=== PATIENT | male | born 1980 | race American Indian/Alaskan Native ===

== ENCOUNTER 2016-12-14 15:42 | Inpatient (IN) | payer MEDICAID ==
[2016-12-14 16:04] VITALS: BMI 37.9
[2016-12-14 16:05] VITALS: O2SAT 95
--- NOTE | 2016-12-14 16:53 | C.PDOC ---
History Of Present Illness 36 y/o male with a Hx of schizophrenia, hypertension, diabetes, and Hypercholesterolemia, presents to the ED with a c/o depression and suicidal ideation for severral months now. Pt notes having auditory command hallucination that is telling him to "commit suicide by taking all his medications" and notes seeing his sister. Pt reports not knowing how much medications to take and notes having a new psychiatrist and was referred to [facility] for psych evaluation yesterday. Pt notes symptoms are persisting but denies fever, chills, nausea, vomiting, diarrhea, or any other complaints. Pt is found to have high blood pressure and is unsure whether he has taken his blood pressure medication. Time Seen by Provider: 12/14/16 16:22 Chief Complaint (Nursing): Psychiatric Evaluation History Per: Patient History/Exam Limitations: no limitations Onset/Duration Of Symptoms: Days Current Symptoms Are (Timing): Still Present Suicide/Self Injury Attempted (Context): Other (Medication overdose) Modifying Factor(s): None Severity: Mild Associated Symptoms: Suicidal Thoughts, Suicidal Plan Past Medical History Reviewed: Historical Data, Nursing Documentation, Vital Signs Vital Signs: Last Vital Signs Temp 98.4 F 12/14/16 16:04 Pulse 92 H 12/14/16 16:04 Resp 18 12/14/16 16:04 BP 148/103 H 12/14/16 16:04 Pulse Ox 95 12/14/16 17:42 - Medical History PMH: Bipolar Disorder, HTN, Hypercholesterolemia Family History: States: Unknown Family Hx - Social History Hx Alcohol Use: No Hx Substance Use: No - Immunization History Hx Tetanus Toxoid Vaccination: No Hx Influenza Vaccination: No Hx Pneumococcal Vaccination: No Review Of Systems Except As Marked, All Systems Reviewed And Found Negative. Constitutional: Negative for: Fever, Chills Gastrointestinal: Negative for: Nausea, Vomiting, Diarrhea Psych: Positive for: Suicidal ideation Physical Exam - Physical Exam Appears: Non-toxic, No Acute Distress Skin: Warm, Dry Head: Atraumatic, Normacephalic Eye(s): bilateral: Normal Inspection Chest: Symmetrical Cardiovascular: Rhythm Regular, No Murmur Respiratory: Normal Breath Sounds, No Rales, No Rhonchi, No Wheezing Gastrointestinal/Abdominal: Soft, No Tenderness Neurological/Psych: Oriented x3, Normal Speech, Normal Cognition ED Course And Treatment - Laboratory Results Result Diagrams: 12/14/16 17:07 12/14/16 17:07 Lab Interpretation: No Acute Changes O2 Sat by Pulse Oximetry: 95 (Room air) Pulse Ox Interpretation: Normal Progress Note: Patient was evaluated by psych and will be admitted for schizoaffective disorder. Medical Decision Making Medical Decision Making: Plans: -EKG -Blood labs -IV fluids -Catapres -Reassess and disposition Pt is admitted to crisis Disposition - Disposition Disposition: HOSPITALIZED Disposition Time: 20:17 Condition: STABLE - POA Present On Arrival: None - Clinical Impression Clinical Impression: Schizoaffective disorder - Scribe Statement The provider has reviewed the documentation as recorded by the Scribe Prosper [email or web address] All medical record entries made by the Scribe were at my direction and personally dictated by me. I have reviewed the chart and agree that the record accurately reflects my personal performance of the history, physical exam, medical decision making, and the department course for this patient. I have also personally directed, reviewed, and agree with the discharge instructions and disposition.
[2016-12-14 17:17] LABS: BASO # 0.1 K/uL (0.0-0.2); EOS # 0.4 K/uL (0.0-0.7); EOS % 4.4 % (0.0-4.0); HEMATOCRIT 42.9 % (35.0-51.0); LYMPH # 2.2 K/uL (1.0-4.3); LYMPH % 23.5 % (20.0-40.0); MEAN CELL VOLUME 85.3 fL (80.0-94.0); MEAN CORPUSCULAR HEMOGLOBIN 27.9 pg (27.0-31.0); MEAN CORPUSCULAR HGB CONC 32.7 g/dL (33.0-37.0); MEAN PLATELET VOLUME 9.8 fL (7.2-11.7); MONO # 0.6 K/uL (0.0-0.8); MONO % 6.9 % (0.0-10.0); RED CELL DISTRIBUTION WIDTH 14.6 % (11.5-14.5); WHITE BLOOD COUNT 9.2 K/uL (4.8-10.8)
[2016-12-14 17:22] LABS: RBC URINE < 1 /hpf (0-3); URINE BILIRUBIN NEGATIVE (NEGATIVE); URINE BLOOD NEGATIVE (NEGATIVE); URINE COLOR Yellow (YELLOW); URINE GLUCOSE (UA) 2+ mg/dL (Normal); URINE KETONE NEGATIVE (NEGATIVE); URINE LEUKOCYTE ESTERASE NEG Leu/uL (Negative); URINE PROTEIN 2+ mg/dL (NEGATIVE); URINE UROBILINOGEN NORMAL mg/dL (0.2-1.0); WBC URINE 1 /hpf (0-5)
[2016-12-14 17:25] LABS: CHLORIDE 96 mmol/L (98-107); SODIUM 139 mmol/L (132-148)
[2016-12-14 17:27] LABS: BILIRUBIN,TOTAL 0.5 mg/dL (0.2-1.3); CARBON DIOXIDE 24 mmol/L (22-30); GFR AFRICAN-AMERICAN > 60
[2016-12-14 17:28] LABS: ALB/GLOB RATIO 1.3 (1.0-2.1); ALKALINE PHOSPHATASE 58 U/L (38-126); ALT/SGPT 50 U/L (21-72); AST/SGOT 60 U/L (17-59); BLOOD UREA NITROGEN 10 mg/dL (9-20); CALCIUM 9.2 mg/dl (8.6-10.4); GLUCOSE,RANDOM 201 mg/dL (75-110)
[2016-12-14 17:29] LABS: ALCOHOL SERUM < 10 mg/dl (0-10)
[2016-12-15] MEDS: buPROPion 150 mg/24 Hours XL Tab PO SCH (10:01)
[2016-12-15] MEDS ORDERED: Pneumococcal 23-Valent Vaccine IM ONE (11:15)
--- NOTE | 2016-12-15 13:36 | PCM.PSYCH ---
Initial Psychiatric Evaluation - Initial Psychiatric Evaluation Type of Admission: Voluntary Legal Status: Capacity Chief Complaint (in patient's own words): Suicidal Ideation, Auditory and Visual Hallucinations History of Present Illness and Precipitating Events: Pt. is a 36 y/o AA M w/ PMHx of schizoaffective disorder. Pt. is unemployed, living in an apartment with his two children, here w/ chief complaint of suicidal ideation secondary to auditory and visual hallucinations. Pt. reports that auditory hallucinations began at age 14, and that visual hallucinations began 2 years ago. Pt. states that the auditory hallucinations are composed of numerous male and female voices that call the Pt. stupid and worthless, and that instruct the Pt. to kill [himself]. Pt. states that the voices never instruct him to hurt anyone else. Pt. reports two previous suicide attempts. The first was at the age of 14: the Pt. was having an argument with his sisters, and he was simultaneously preoccupied with the voices telling him to kill himself. Pt. states that he attempted to jump from the third floor of his home, but was grabbed and stopped by his brother. Pt. subsequently stayed in the hospital for 2 weeks - Pt. does not recall what pharmaceutical tx he received, but he remembers taking part in group therapy and individual therapy. Pt. reports that he still suffered from auditory hallucinations after his hospital stay. Pt. does not remember being on medication after he was discharged, and he reports lying to his mother about his continued auditory hallucinations. Pt. admits to a second suicide attempt 2 weeks ago, in which he planned to overdose on his psychotropic medications, but he went to his support group and they [place] [facility] [place]. Pt was discharged two days ago [place] [facility] Pt. also admits to visual hallucinations that began 2 years ago. His visual hallucinations include shadows and people in black suits, but are predominated by his sister Joselin, who from HIV/AIDS in 1995. Pt. reports that his sister will tell him that she is happy where she is, that [he] should join her, and that [he] should kill [himself]. Pt. admits to feeling as if someone is following him, and he admits to both auditory and visual hallucinations causing him to continuously inspect his home' s closets and cabinets in order to investigate hallucinations. Pt. reports being compliant with his medications and being engaged in outpatient tx at the [place] clinic [place] [facility]. Pt. reports being treated w/ Haldol 10 mg 2xday, Buproprion XL 150 mg 1xday, and Zoloft 200 mg 1xday. On review of systems Pt. admits to feelings of worthlessness, anhedonia, fatigue , difficulty focussing, and distractibility. Pt. denies feelings of euphoria, grandiosity, or talkativeness now, however, he states that in the last month he had felt that way. Pt. denies drug or alcohol abuse. Pt. is disorganized and internally preoccupied, with blunted affect. Current Medications: Active Medications Generic Name Dose Route Start Last Admin Trade Name Freq PRN Reason Stop Dose Admin Benztropine Mesylate 1 mg 12/15/16 10:15 12/15/16 10:07 Cogentin PO 1 mg BID LILLIE Administration Bupropion HCl 150 mg 12/15/16 10:00 12/15/16 10:01 Wellbutrin Xl PO 150 mg DAILY LILLIE Administration Haloperidol 10 mg 12/15/16 10:00 12/15/16 10:00 Haldol PO 10 mg BID LILLIE Administration Haloperidol 5 mg 12/14/16 21:46 12/14/16 21:58 Haldol PO 5 mg Q6 PRN Administration Agitation Hydroxyzine HCl 50 mg 12/14/16 21:45 12/14/16 21:58 Atarax PO 50 mg Q6 PRN Administration Anxiety Lorazepam 1 mg 12/14/16 21:45 Ativan PO Q6 PRN Agitation Losartan Potassium 25 mg 12/15/16 10:00 Cozaar PO DAILY LILLIE Metformin HCl 1,000 mg 12/15/16 10:00 12/15/16 10:01 Glucophage PO 1,000 mg BID LILLIE Administration Rosuvastatin Calcium 5 mg 12/14/16 22:00 12/14/16 22:01 Crestor PO 5 mg HS LILILE Administration Sertraline HCl 200 mg 12/15/16 10:00 12/15/16 10:00 Zoloft PO 200 mg DAILY LILLIE Administration Past Psychiatric History - Past Psychiatric History Previous Treatment History: Inpatient Pertinent Medical Hx (Current Medical&Sleep Prob, Allergies): Allergies Allergy/AdvReac Type Severity Reaction Status Date / Time shellfish derived Allergy Verified 12/14/16 16:42 Atorvastatin [Lipitor] 10 mg PO DAILY 12/14/16 Haloperidol [Haldol] 10 mg PO BID 12/14/16 Losartan [Cozaar] 25 mg PO DAILY 12/14/16 MetFORMIN [glucOPHAGE] 1,000 mg PO BID 12/14/16 Sertraline [Zoloft] 200 mg PO DAILY 12/14/16 buPROPion XL [Wellbutrin] 150 mg PO DAILY 12/14/16 Review of Systems - Review of Systems All systems: reviewed and no additional remarkable complaints except - Psychiatric Psychiatric: Abnormal Sleep Pattern, Anhedonia, Anxiety, Auditory Hallucinations , Depression, Difficulty Concentrating, Hallucinations, Irritability, Paranoia, Suicidal Ideation, Visual Hallucinations Mental Status Examination - Personal Presentation Personal Presentation: Looks stated age - Affect Affect: Constricted, Depressed - Motor Activity Motor Activity: Psychomotor Retardation - Reliability in Providing Information Reliability in Providing Information: Poor, due to alteration in thoughts, Poor , due to altered mood - Speech Speech: Disorganized - Mood Mood: Depressed, Anxious - Formal Thought Process Formal Thought Process: Hallucinations, Delusions, Paranoia, Loosening of associations - Hallucinations/Delusions Hallucinations: Visual, Auditory Delusions: Persecution - Obsessions/Compulsions Obsessions: No Compulsions: No - Cognitive Functions Orientation: Person, Place, Situation, Time Sensorium: Alert Attention/Concentration: Attentive Abstract Thinking: [place] Estimate of Intelligence: Below average Judgement: Imparied, as evidence by: Poor judgement, Imparied, as evidence by: Lack of insight into illness - Risk Risk: Suicidal, Diminished functioning - Strength & Assets Inventory Strength & Assets Inventory: Family support DSM 5 DX - DSM 5 DSM 5 Diagnosis: Schizoaffective disorder depressed type - Recommended/Plan of Treatment Treatment Recommendations and Plan of Treatment: Schizoaffective disorder depressed type CBT Psychoeducation Supportive therapy and group therapy Start Haldol 10 mg by mouth twice a day Start Zoloft 200 mg daily Start Wellbutrin 150 mg daily Start Cogentin 1 mg by mouth twice a day DM Continue prescribed medications (Metformin) Monitor signs and symptoms HTN Continue prescribed medications (Losartan) Monitor signs and symptoms Hyperlipidemia Continue prescribed medications (Rosuvastatin) Monitor signs and symptoms
--- NOTE | 2016-12-15 21:28 | CARD ---
APPROVED REPORT EKG Measurement Heart [id number] <Conclusion> Normal sinus rhythm T wave abnormality, consider inferior ischemia Abnormal ECG
[2016-12-16] MEDS: buPROPion 150 mg/24 Hours XL Tab PO SCH (09:42)
--- NOTE | 2016-12-16 12:39 | PCM.PYCHPN ---
Psychiatric Progress Note - Psychiatric Progress Note Patient seen today, length of contact: 16 min Patient Chief Complaint: Suicidal Ideation, Auditory and Visual Hallucinations Problems Identified/Issues Discussed: Patient seen and evaluated, chart reviewed and discussed with the nurse. Supportive therapy and psychoeducation were given. Patient remained disorganized and internally preoccupied. Patient was found to be pacing back and forth in the hallways. He appeared anxious, paranoid and delusional. He started taking medication and denies any side effects. Medication Change: Yes (increase haldol ) Medical Record Reviewed: Yes Mental Status Examination - Cognitive Function Orientation: Person, Place, Situation, Time Memory: Intact Attention: WNL Concentration: Poor Association: Loose Fund of Knowledge: WNL - Mood Mood: Depressed, Anxious - Affect Affect: Constricted, Depressed - Speech Speech: Soft - Formal Thought Process Formal Thought Process: Hallucinations, Delusions, Paranoia, Loosening of associations - Suicidal Ideation Suicidal Ideation: No - Homicidal Ideation Homicidal Ideation: No Goal/Treatment Plan - Goal/Treatment Plan Need for Continued Stay: Discharge may exacerbated symptoms, Severe functional impairment Progress Toward Problem(s) and Goals/Treatment Plan: Schizoaffective disorder depressed type CBT Psychoeducation Supportive therapy and group therapy Haldol 10 mg by mouth twice a day Zoloft 200 mg daily Wellbutrin 150 mg daily Cogentin 1 mg by mouth twice a day DM Continue prescribed medications (Metformin) Monitor signs and symptoms HTN Continue prescribed medications (Losartan) Monitor signs and symptoms Hyperlipidemia Continue prescribed medications (Rosuvastatin) Monitor signs and symptoms - Smoking Cessation Smoking Cessation Initiated: No
[2016-12-17] MEDS: buPROPion 150 mg/24 Hours XL Tab PO SCH (10:08)
--- NOTE | 2016-12-17 15:20 | PCM.PYCHPN ---
Psychiatric Progress Note - Psychiatric Progress Note Patient seen today, length of contact: 15 minutes Patient Chief Complaint: I'm feeling much better. I heard some voices briefly last night Problems Identified/Issues Discussed: Patient seen. Chart reviewed. Case discussed with the staff. Issues related to illness and treatment were discussed with the patient. Patient reported feeling better with the treatment. He voices are very less and very less frequently. Reported last time he heard some voices very briefly and also intensity is very less. Staff also confirmed the above. At the time of evaluation, patient was awake alert oriented 3, had no delusions, no auditory or visual hallucinations , no suicidal ideations or homicidal ideations. Medical Problems: Hypertension Diabetes mellitus Hyperlipidemia Diagnostic Results: Reviewed DSM 5 Symptoms Update: Improving with treatment Medication Change: No Medical Record Reviewed: Yes Mental Status Examination - Cognitive Function Orientation: Person, Place, Situation, Time Memory: Intact Attention: WNL Concentration: Poor Association: WNL Fund of Knowledge: WNL Decription of patient's judgement and insights: Fair - Mood Mood: Neutral - Affect Affect: Other (Appropriate) - Speech Speech: Soft - Formal Thought Process Formal Thought Process: No Impairment (At the time of evaluation) Psychotic Thoughts and Behaviors: None - Suicidal Ideation Suicidal Ideation: No - Homicidal Ideation Homicidal Ideation: No Goal/Treatment Plan - Goal/Treatment Plan Need for Continued Stay: Remain at risks for inpatient hospitalization, Discharge may exacerbated symptoms, Severe functional impairment Progress Toward Problem(s) and Goals/Treatment Plan: Patient education Supportive therapy Continue treatment as before Patient will go to [facility], for follow-up care after discharge from the hospital. Estimated Date of D/C: 12/21/16 - Smoking Cessation Smoking Cessation Initiated: No
[2016-12-18] MEDS: buPROPion 150 mg/24 Hours XL Tab PO SCH (09:16)
--- NOTE | 2016-12-18 12:32 | PCM.PYCHPN ---
Psychiatric Progress Note - Psychiatric Progress Note Patient seen today, length of contact: 15 minutes Patient Chief Complaint: I'm feeling much better. Problems Identified/Issues Discussed: Patient seen. Chart reviewed. Case discussed with the staff. Issues related to illness and treatment were discussed with the patient. Patient reported feeling better with the treatment. He reported voices are very less and hears them less frequently. Also intensity is very less. Staff also confirmed the above. At the time of evaluation, patient was awake alert oriented 3, had no delusions, no auditory or visual hallucinations, no suicidal ideations or homicidal ideations. Medical Problems: Hypertension Diabetes mellitus Hyperlipidemia Diagnostic Results: Reviewed DSM 5 Symptoms Update: Improving with treatment Medication Change: No Medical Record Reviewed: Yes Mental Status Examination - Cognitive Function Orientation: Person, Place, Situation, Time Memory: Intact Attention: WNL Concentration: WNL Association: WNL Fund of Knowledge: WN Decription of patient's judgement and insights: Fair - Mood Mood: Neutral - Affect Affect: Other (Appropriate) - Speech Speech: Soft - Formal Thought Process Formal Thought Process: No Impairment (At the time of evaluation) Psychotic Thoughts and Behaviors: None - Suicidal Ideation Suicidal Ideation: No - Homicidal Ideation Homicidal Ideation: No Goal/Treatment Plan - Goal/Treatment Plan Need for Continued Stay: Remain at risks for inpatient hospitalization, Discharge may exacerbated symptoms, Severe functional impairment Progress Toward Problem(s) and Goals/Treatment Plan: Patient education Supportive therapy Continue treatment as before Patient will go to [facility], for follow-up care after discharge from the hospital. Estimated Date of D/C: 12/21/16 - Smoking Cessation Smoking Cessation Initiated: No
[2016-12-19] MEDS: buPROPion 150 mg/24 Hours XL Tab PO SCH (09:00)
--- NOTE | 2016-12-19 13:23 | PCM.PYCHPN ---
Psychiatric Progress Note - Psychiatric Progress Note Patient seen today, length of contact: 15 minutes Patient Chief Complaint: Suicidal Ideation, Auditory and Visual Hallucinations Problems Identified/Issues Discussed: Patient seen and evaluated, chart reviewed and discussed with the nurse. Patient remained disorganized and internally preoccupied. Patient was found to be pacing back and forth in the hallways. He appeared anxious, paranoid and delusional. Pt. admits to continued auditory and visual hallucinations. The auditory hallucinations are voices that denigrate him, call him worthless etc. The visual hallucinations are human figures w/ blacked-out faces. Pt. admits to difficulty sleeping. Pt. denies suicidal ideation or thoughts of self-harm. Pt. states that his current medications make him groggy. Supportive therapy and psychoeducation were given. Medication Change: No Medical Record Reviewed: Yes Mental Status Examination - Cognitive Function Orientation: Person, Place, Situation, Time Memory: Intact Attention: WNL Concentration: Poor Association: WNL Fund of Knowledge: Poor - Mood Mood: Anxious - Affect Affect: Constricted, Depressed, Other (Appropriate) - Speech Speech: Soft - Formal Thought Process Formal Thought Process: Hallucinations, Delusions - Suicidal Ideation Suicidal Ideation: No - Homicidal Ideation Homicidal Ideation: No Goal/Treatment Plan - Goal/Treatment Plan Need for Continued Stay: Remain at risks for inpatient hospitalization, Discharge may exacerbated symptoms, Severe functional impairment Progress Toward Problem(s) and Goals/Treatment Plan: Schizoaffective disorder depressed type CBT Psychoeducation Supportive therapy and group therapy Haldol 10 mg by mouth twice a day Zoloft 200 mg daily Wellbutrin 150 mg daily Cogentin 1 mg by mouth twice a day DM Continue prescribed medications (Metformin) Monitor signs and symptoms HTN Continue prescribed medications (Losartan) Monitor signs and symptoms Hyperlipidemia Continue prescribed medications (Rosuvastatin) Monitor signs and symptoms Estimated Date of D/C: 12/21/16 - Smoking Cessation Smoking Cessation Initiated: No
[2016-12-20] MEDS: buPROPion 150 mg/24 Hours XL Tab PO SCH (09:24)
--- NOTE | 2016-12-20 17:43 | PCM.PYCHPN ---
Psychiatric Progress Note - Psychiatric Progress Note Patient seen today, length of contact: 15 minutes Patient Chief Complaint: I'm feeling better Problems Identified/Issues Discussed: Patient seen and evaluated, chart reviewed and discussed with the nurse. As per staff patient is becoming more organized and has started coming out of his room. Patient reports improvement in his voices and delusions. He remained calm and cooperative, and appears coherent. He started taking hygiene and ADLs. Pt. denies suicidal ideation or thoughts of self-harm. Pt. is taking medication and denied any side effects. Supportive therapy and psychoeducation were given. Medication Change: No Medical Record Reviewed: Yes Mental Status Examination - Cognitive Function Orientation: Person, Place, Situation, Time Memory: Intact Attention: WNL Concentration: WNL Association: WNL Fund of Knowledge: WNL - Mood Mood: Anxious - Affect Affect: Constricted - Speech Speech: Soft - Formal Thought Process Formal Thought Process: Hallucinations - Suicidal Ideation Suicidal Ideation: No - Homicidal Ideation Homicidal Ideation: No Goal/Treatment Plan - Goal/Treatment Plan Need for Continued Stay: Remain at risks for inpatient hospitalization, Discharge may exacerbated symptoms, Severe functional impairment Progress Toward Problem(s) and Goals/Treatment Plan: Schizoaffective disorder depressed type CBT Psychoeducation Supportive therapy and group therapy Haldol 10 mg by mouth twice a day Zoloft 200 mg daily Wellbutrin 150 mg daily Cogentin 1 mg by mouth twice a day DM Continue prescribed medications (Metformin) Monitor signs and symptoms HTN Continue prescribed medications (Losartan) Monitor signs and symptoms Hyperlipidemia Continue prescribed medications (Rosuvastatin) Monitor signs and symptoms Estimated Date of D/C: 12/21/16 - Smoking Cessation Smoking Cessation Initiated: No
--- NOTE | 2016-12-21 10:23 | PCM.PYCHPN ---
Psychiatric Progress Note - Psychiatric Progress Note Patient seen today, length of contact: 15 minutes Patient Chief Complaint: Suicidal Ideation, Auditory and Visual Hallucinations Problems Identified/Issues Discussed: Pt. reports that the auditory hallucinations are now manifesting as a low volume white noise, which is much improved from the voices he was hearing on admission. Pt. denies visual hallucinations for the first time since admission. Pt. manifests a positive affect. Pt. reports that his medications make him feel groggy, and he admits to feeling musculoskeletal body aches. Medication Change: No Medical Record Reviewed: Yes Mental Status Examination - Cognitive Function Orientation: Person, Place, Situation, Time Memory: Intact Attention: WNL Concentration: Poor Association: WNL Fund of Knowledge: Poor - Mood Mood: Depressed - Affect Affect: Constricted, Depressed, Other (Appropriate) - Speech Speech: Soft - Formal Thought Process Formal Thought Process: Hallucinations - Suicidal Ideation Suicidal Ideation: No - Homicidal Ideation Homicidal Ideation: No Goal/Treatment Plan - Goal/Treatment Plan Need for Continued Stay: Remain at risks for inpatient hospitalization, Discharge may exacerbated symptoms, Severe functional impairment Progress Toward Problem(s) and Goals/Treatment Plan: Schizoaffective disorder depressed type CBT Psychoeducation Supportive therapy and group therapy Haldol 10 mg by mouth twice a day Zoloft 200 mg daily Wellbutrin 150 mg daily Cogentin 1 mg by mouth twice a day DM Continue prescribed medications (Metformin) Monitor signs and symptoms HTN Continue prescribed medications (Losartan) Monitor signs and symptoms Hyperlipidemia Continue prescribed medications (Rosuvastatin) Monitor signs and symptoms Estimated Date of D/C: 12/21/16
[2016-12-21] MEDS: buPROPion 150 mg/24 Hours XL Tab PO SCH (10:28)
[2016-12-21 16:13] VITALS: BP 138/92
[2016-12-22 07:59] VITALS: PULSE 96; RESP 18; TEMP 97.3
[2016-12-22] MEDS: buPROPion 150 mg/24 Hours XL Tab PO SCH (09:01)
--- NOTE | 2016-12-22 10:56 | PCM.PYCHDC ---
Mental Status Examination - Mental Status Examination Orientation: Person, Place, Situation, Time Memory: Intact Mood: Neutral Affect: Constricted Speech: Soft Attention: WNL Concentration: WNL Association: WNL Fund of Knowledge: WNL Formal Thought Process: No Impairment Description of patient's judgement and insight: good, fair Psychotic Thoughts and Behaviors: denies any AVH Suicidal Ideation: No Current Homicidal Ideation?: No Discharge Summary - Discharge Note Reason for Hospitalization: Pt. is a 36 y/o AA M w/ PMHx of schizoaffective disorder. Pt. is unemployed, living in an apartment with his two children, here w/ chief complaint of suicidal ideation secondary to auditory and visual hallucinations. Pt. reports that auditory hallucinations began at age 14, and that visual hallucinations began 2 years ago. Pt. states that the auditory hallucinations are composed of numerous male and female voices that call the Pt. stupid and worthless, and that instruct the Pt. to kill [himself]. Pt. states that the voices never instruct him to hurt anyone else. Pt. reports two previous suicide attempts. The first was at the age of 14: the Pt. was having an argument with his sisters, and he was simultaneously preoccupied with the voices telling him to kill himself. Pt. states that he attempted to jump from the third floor of his home, but was grabbed and stopped by his brother. Pt. subsequently stayed in the hospital for 2 weeks - Pt. does not recall what pharmaceutical tx he received, but he remembers taking part in group therapy and individual therapy. Pt. reports that he still suffered from auditory hallucinations after his hospital stay. Pt. does not remember being on medication after he was discharged, and he reports lying to his mother about his continued auditory hallucinations. Pt. admits to a second suicide attempt 2 weeks ago, in which he planned to overdose on his psychotropic medications, but he went to his support group and they sent him to [facility] for tx. Pt was discharged two days ago from [facility]. Pt. also admits to visual hallucinations that began 2 years ago. His visual hallucinations include shadows and people in black suits, but are predominated by his sister Joselin, who from HIV/AIDS in 1995. Pt. reports that his sister will tell him that she is happy where she is, that [he] should join her, and that [he] should kill [himself]. Pt. admits to feeling as if someone is following him, and he admits to both auditory and visual hallucinations causing him to continuously inspect his home' s closets and cabinets in order to investigate hallucinations. Pt. reports being compliant with his medications and being engaged in outpatient tx at the psych clinic at [facility]. Pt. reports being treated w/ Haldol 10 mg 2xday, Buproprion XL 150 mg 1xday, and Zoloft 200 mg 1xday. On review of systems Pt. admits to feelings of worthlessness, anhedonia, fatigue , difficulty focussing, and distractibility. Pt. denies feelings of euphoria, grandiosity, or talkativeness now, however, he states that in the last month he had felt that way. Pt. denies drug or alcohol abuse. Pt. is disorganized and internally preoccupied, with blunted affect. Laboratory Data: Abnormal Lab Results 12/22/16 07:25 POC Glucose (mg/dL) 258 H Consultations:: List each consultation separately and include: 1. Reason for request. 2. Findings. 3. Follow-up Summary of Hospital Course include:: 1. Description of specific treatment plan utilized for patients during their course of treatmen. 2. Summarize the time- course for resolution of acute symptoms and/or regressed behaviors. 3. Describe issues identified and worked on during hospitalization. 4. Describe medication utilized. 5. Describe medical problems identified and treated. 6. Reassessment of suicide risk Summary of Hospital Course: During the course of his stay, patient (pt) started progressively improving and he no longer remained irritable, depressed, suicidal and paranoid. His mood and paranoia were improved and he started attending groups and meetings and started socializing. He started taking care of his hygiene and ADLs, and he no longer remained disheveled and malodorous. Patient denied any feelings of hopelessness , helplessness, and worthlessness, denied any problem with the sleep or appetite , denied suicidal ideation or homicidal ideation. Pt denied any auditory or visual hallucinations. Some changes were made in his current medications and patient was discharged on following medications. He tolerated these medications very well and denied any side effects. - Final Diagnosis (DSM 5) Condition upon Discharge: STABLE DSM 5: Schizoaffective disorder depressed type Disposition: HOME/ ROUTINE Follow-up Treatment Plan: Education: Pt was educated and counseled about the risks and benefits of taking and not taking medications. Pt was educated and counseled about the risks of drinking and abusing drugs. Pt was educated and counseled to go to the ER or call 911 if pt develop suicidal ideation or homicidal ideation, worsening of symptoms or severe side effects of the meds. Prescriptions/Medication Reconciliation: Benztropine [Cogentin] 1 mg PO BID #60 tab Haloperidol [Haldol] 10 mg PO BID #60 tab buPROPion XL [Wellbutrin XL] 150 mg PO DAILY #30 t24 Sertraline [Zoloft] 100 mg PO DAILY #60 tab - Smoking Cessation Smoking Cessation Medication prescribed: No - Antipsychotic Medications Pt discharged on 2 or more routine antipsychotic medications: No
== END 2016-12-22 11:15 | disposition home or self-care (01) | DRG 430 ==
LOC: C.ER 15:42 → C.5E 20:18
PROVIDERS: ADMIT Psychiatry & Neurology Psychiatry; ATTEND Psychiatry & Neurology Psychiatry
PROC: GZ56ZZZ Individual Psychotherapy, Supportive (ICD-10-PCS; principal; 2016-12-14)
PROC: GZHZZZZ Group Psychotherapy (ICD-10-PCS; 2016-12-14)
DX: F25.1 Schizoaffective disorder, depressive type (principal); E11.9 Type 2 diabetes mellitus without complications; R45.851 Suicidal ideations; I10 Essential (primary) hypertension; E78.5 Hyperlipidemia, unspecified; Z68.38 Body mass index [BMI] 38.0-38.9, adult; Z79.4 Long term (current) use of insulin